=== PATIENT | female | born 1985 | race Caucasian/White ===

== ENCOUNTER 2019-07-10 15:09 | Emergency (ER) | payer SELFPAY ==
[~2019-07-10] VITALS: Ht 162.6 cm; Wt 54.4 kg
--- NOTE | 2019-07-10 15:19 | Emergency Room Report ---
History of Present Illness General Source: Patient (Miguel Bravo MD) Present Illness HPI Patient a 26-year-old female brought in by EMS after increased agitation. Reportedly had been banging her head against the ground. Patient had been given Versed intramuscularly prior to arrival. History is markedly limited by patient's mental status. (Miguel Bravo MD) Allergies: Coded Allergies: UNABLE TO ASSESS (Unverified , 07/10/19) Patient History Past Medical History: see triage record Reviewed Nursing Documentation: PMH: Agreed; PSxH: Agreed (Miguel Bravo MD) Review of Systems All Other Systems: limited - Limited by mental status and poor historian (Miguel Bravo MD) Physical Exam Sp02 EP Interpretation: reviewed, normal General Appearance: normal inspection, alert, GCS 15, Chronically Ill Head: atraumatic ENT: normal ENT inspection, hearing grossly normal, normal voice Neck: normal inspection, full range of motion, supple, no bony tend Respiratory: normal inspection, lungs clear, normal breath sounds, no respiratory distress, no retraction, no wheezing Cardiovascular #1: regular rate, rhythm, no edema Gastrointestinal: normal inspection, normal bowel sounds, non tender, soft, no guarding, no hernia Genitourinary: no CVA tenderness Musculoskeletal: normal inspection, back normal, normal range of motion Neurologic: alert, motor strength/tone normal, charging manipulator III-XII nml as tested, oriented x3, responsive, speech normal, normal inspection Psychiatric: normal inspection, judgement/insight normal, mood/affect normal Skin: abrasion - Abrasions to the neck (Miguel Bravo MD) Medical Decision Making Homeless Attestation I, The treating physician Dr. Thorne, have assessed and agree that patient is medically stable for discharge to an outpatient disposition. (Delano Thorne MD) Diagnostic Impression: Primary Impression: Altered mental status Qualified Codes: R40.4 - Transient alteration of awareness Additional Impressions: Abrasions of multiple sites Substance abuse ER Course Patient presented for increased agitation. Differential diagnosis include was not limited to substance abuse, psychosis, alcohol withdrawal, among others. Because of complexity of patient's case laboratory tests and imaging studies were ordered. Patient was noted to be somewhat agitated initially. She was given multiple medications to assist with sedation. Laboratory testing showed market elevation of the patient's alcohol level as well as multiple different substances. She was noted to have multiple abrasions to her extremities.Patient was noted to be markedly agitated. She was given medications for sedation due to agitation. Patient be endorsed to pending reevaluation when more sober. Labs Test 07/10/19 15:46 White Blood Count 11.7 K/UL (4.8-10.8) Red Blood Count 3.93 M/UL (4.20-5.40) Hemoglobin 11.8 G/DL (12.0-16.0) Hematocrit 34.7 % (37.0-47.0) Mean Corpuscular Volume 88 FL (80-99) Mean Corpuscular Hemoglobin 30.0 PG (27.0-31.0) Mean Corpuscular Hemoglobin Concent 33.9 G/DL (32.0-36.0) Red Cell Distribution Width 13.6 % (11.6-14.8) Platelet Count 326 K/UL (150-450) Mean Platelet Volume 4.4 FL (6.5-10.1) Neutrophils (%) (Auto) 73.9 % (45.0-75.0) Lymphocytes (%) (Auto) 17.5 % (20.0-45.0) Monocytes (%) (Auto) 7.6 % (1.0-10.0) Eosinophils (%) (Auto) 0.3 % (0.0-3.0) Basophils (%) (Auto) 0.7 % (0.0-2.0) Urine Color Yellow Urine Appearance Clear Urine pH 5 (4.5-8.0) Urine Specific Lipan 1.025 (1.005-1.035) Urine Protein 3+ (NEGATIVE) Urine Glucose (UA) Negative (NEGATIVE) Urine Ketones 1+ (NEGATIVE) Urine Blood 2+ (NEGATIVE) Urine Nitrite Negative (NEGATIVE) Urine Bilirubin Negative (NEGATIVE) Urine Urobilinogen Normal MG/DL (0.0-1.0) Urine Leukocyte Esterase Negative (NEGATIVE) Urine RBC 0-2 /HPF (0 - 2) Urine WBC 0-2 /HPF (0 - 2) Urine Squamous Epithelial Cells Moderate /LPF (NONE/OCC) Urine Bacteria Many /HPF (NONE) Urine HCG, Qualitative Negative (NEGATIVE) Sodium Level 144 MMOL/L (136-145) Potassium Level 3.7 MMOL/L (3.5-5.1) Chloride Level 107 MMOL/L (98-107) Carbon Dioxide Level 26 MMOL/L (21-32) Anion Gap 11 mmol/L (5-15) Blood Urea Nitrogen 16 mg/dL (7-18) Creatinine 0.6 MG/DL (0.55-1.30) Estimat Glomerular Filtration Rate > 60 mL/min (>60) Glucose Level 101 MG/DL (74-106) Calcium Level 7.8 MG/DL (8.5-10.1) Total Bilirubin 0.2 MG/DL (0.2-1.0) Aspartate Amino Transf (AST/SGOT) 23 U/L (15-37) Alanine Aminotransferase (ALT/SGPT) 34 U/L (12-78) Alkaline Phosphatase 111 U/L (46-116) Total Protein 6.7 G/DL (6.4-8.2) Albumin 3.0 G/DL (3.4-5.0) Globulin 3.7 g/dL Albumin/Globulin Ratio 0.8 (1.0-2.7) Salicylates Level 1.2 ug/mL (2.8-20) Urine Opiates Screen Negative (NEGATIVE) Acetaminophen Level < 2 MCG/ML (10-30) Urine Barbiturates Screen Negative (NEGATIVE) Phencyclidine (PCP) Screen Negative (NEGATIVE) Urine Amphetamines Screen Positive (NEGATIVE) Urine Benzodiazepines Screen Positive (NEGATIVE) Urine Cocaine Screen Positive (NEGATIVE) Urine Marijuana (THC) Screen Positive (NEGATIVE) Serum Alcohol 229 mg/dL (Miguel Bravo MD) ER Course Please see above note. 340 patient more alert. She gave us the name. When asked if she wants to harm herself at this time she is states no. She is still sleepy and slow to answer questions. Will reevaluate in the morning. 450 patient ambulated to bathroom. Patient states she is not taking psychiatric medication at this time. She does admit to doing drugs. She admits she has cut herself in the past. Patient continues to deny suicidal or homicidal ideation. Patient is stable for outpatient observation and treatment. Laboratory Tests Test 07/10/19 15:46 White Blood Count 11.7 K/UL (4.8-10.8) H Red Blood Count 3.93 M/UL (4.20-5.40) L Hemoglobin 11.8 G/DL (12.0-16.0) L Hematocrit 34.7 % (37.0-47.0) L Mean Corpuscular Volume 88 FL (80-99) Mean Corpuscular Hemoglobin 30.0 PG (27.0-31.0) Mean Corpuscular Hemoglobin Concent 33.9 G/DL (32.0-36.0) Red Cell Distribution Width 13.6 % (11.6-14.8) Platelet Count 326 K/UL (150-450) Mean Platelet Volume 4.4 FL (6.5-10.1) L Neutrophils (%) (Auto) 73.9 % (45.0-75.0) Lymphocytes (%) (Auto) 17.5 % (20.0-45.0) L Monocytes (%) (Auto) 7.6 % (1.0-10.0) Eosinophils (%) (Auto) 0.3 % (0.0-3.0) Basophils (%) (Auto) 0.7 % (0.0-2.0) Urine Color Yellow Urine Appearance Clear Urine pH 5 (4.5-8.0) Urine Specific Lipan 1.025 (1.005-1.035) Urine Protein 3+ (NEGATIVE) H Urine Glucose (UA) Negative (NEGATIVE) Urine Ketones 1+ (NEGATIVE) H Urine Blood 2+ (NEGATIVE) H Urine Nitrite Negative (NEGATIVE) Urine Bilirubin Negative (NEGATIVE) Urine Urobilinogen Normal MG/DL (0.0-1.0) Urine Leukocyte Esterase Negative (NEGATIVE) Urine RBC 0-2 /HPF (0 - 2) Urine WBC 0-2 /HPF (0 - 2) Urine Squamous Epithelial Cells Moderate /LPF (NONE/OCC) H Urine Bacteria Many /HPF (NONE) H Urine HCG, Qualitative Negative (NEGATIVE) Sodium Level 144 MMOL/L (136-145) Potassium Level 3.7 MMOL/L (3.5-5.1) Chloride Level 107 MMOL/L (98-107) Carbon Dioxide Level 26 MMOL/L (21-32) Anion Gap 11 mmol/L (5-15) Blood Urea Nitrogen 16 mg/dL (7-18) Creatinine 0.6 MG/DL (0.55-1.30) Estimate Glomerular Filtration Rate > 60 mL/min (>60) Glucose Level 101 MG/DL (74-106) Calcium Level 7.8 MG/DL (8.5-10.1) L Total Bilirubin 0.2 MG/DL (0.2-1.0) Aspartate Amino Transferase (AST) 23 U/L (15-37) Alanine Aminotransferase (ALT) 34 U/L (12-78) Alkaline Phosphatase 111 U/L (46-116) Total Protein 6.7 G/DL (6.4-8.2) Albumin 3.0 G/DL (3.4-5.0) L Globulin 3.7 g/dL Albumin/Globulin Ratio 0.8 (1.0-2.7) L Salicylates Level 1.2 ug/mL (2.8-20) L Urine Opiates Screen Negative (NEGATIVE) Acetaminophen Level < 2 MCG/ML (10-30) L Urine Barbiturates Screen Negative (NEGATIVE) Phencyclidine (PCP) Screen Negative (NEGATIVE) Urine Amphetamines Screen Positive (NEGATIVE) H Urine Benzodiazepines Screen Positive (NEGATIVE) H Urine Cocaine Screen Positive (NEGATIVE) H Urine Marijuana (THC) Screen Positive (NEGATIVE) H Serum Alcohol 229 mg/dL (Delano Thorne MD) Status: improved (Miguel Bravo MD) Last Vital Signs Date Time Temp Pulse Resp B/P (MAP) Pulse Ox O2 Delivery O2 Flow Rate FiO2 07/11/19 08:38 88 20 100 Room Air 07/11/19 08:38 98.1 118/65 Status: improved (Delano Thorne MD) Disposition: HOME, SELF-CARE Condition: Improved Scripts Bacitracin (Bacitracin) 28.4 Gm Oint...g. 1 APPLIC TOPIC BID, #20 GM Prov: Delano Thorne MD 07/11/19 Miguel Bravo MD Jul 10, 2019 15:19 Delano Thorne MD Jul 11, 2019 03:40
[2019-07-10 15:32] VITALS: BP 112/53
--- NOTE | 2019-07-10 15:32 | NUR ---
ED Nurse Note: PT BROUGHT IN BY RA Rodriguez FROM STREET DUE TO BEHAVIORAL COMPLAINT. PT WAS FOUND ON A SIDE STREET AND WAS BANGING HER HEAD ON THE SIDE WALK. NOTED OLD ABRASIONS ON BILATERAL ARMS. NO ACTIVE BLEEDING. EMS GAVE VERSED 5MG IM DUE TO BEING RESTLESS. PT IS AWAKE BUT COMPLETELY DISORIENTED AND UNABLE TO COMMUNICATE TO ED STAFF. NO RESPIRATORY DISTRESS.
[2019-07-10 16:23] LABS: BASOPHILS % (AUTO) 0.7 % (0.0-2.0); EOSINOPHILS % (AUTO) 0.3 % (0.0-3.0); HEMATOCRIT 34.7 % (37.0-47.0); HEMOGLOBIN 11.8 G/DL (12.0-16.0); LYMPHOCYTES % (AUTO) 17.5 % (20.0-45.0); MEAN CORPUSCULAR VOLUME 88 FL (80-99); MONOCYTES % (AUTO) 7.6 % (1.0-10.0); NEUTROPHILS % (AUTO) 73.9 % (45.0-75.0); PLATELET COUNT 326 K/UL (150-450); RED BLOOD COUNT 3.93 M/UL (4.20-5.40); RED CELL DISTRIBUTION WIDTH 13.6 % (11.6-14.8); WHITE BLOOD COUNT 11.7 K/UL (4.8-10.8)
[2019-07-10] MEDS ORDERED: DiphenhydrAMINE 50mg/ml Inj IM ONE (16:30)
[2019-07-10] MEDS ORDERED: Haloperidol 5mg/ml Inj IM ONE (16:30)
[2019-07-10] MEDS ORDERED: LORazepam Inj 2mg/ml 1ml IM ONE (16:30)
--- NOTE | 2019-07-10 16:30 | NUR ---
ED Nurse Note: PT VERY RESTLESS AND KEEPS CURSING ED STAFF. DR ESCALONA AWARE. WAITING FOR ORDERS.
[2019-07-10 16:33] LABS: APPEARANCE,URINE CLEAR; BILIRUBIN, URINE NEGATIVE (NEGATIVE); GLUCOSE, URINE (UA) NEGATIVE (NEGATIVE); KETONES,URINE 1+ (NEGATIVE); LEUKOCYTE ESTERASE ,URINE NEGATIVE (NEGATIVE); NITRITE,URINE NEGATIVE (NEGATIVE); PH,URINE 5 (4.5-8.0); PROTEIN,URINE 3+ (NEGATIVE); UROBILINOGEN,URINE NORMAL MG/DL (0.0-1.0)
[2019-07-10 16:34] LABS: COLOR,URINE YELLOW
[2019-07-10 16:41] LABS: ANION GAP 11 mmol/L (5-15); BLOOD UREA NITROGEN 16 mg/dL (7-18); CALCIUM 7.8 MG/DL (8.5-10.1); CARBON DIOXIDE 26 MMOL/L (21-32); CHLORIDE 107 MMOL/L (98-107); CREATININE 0.6 MG/DL (0.55-1.30); POTASSIUM 3.7 MMOL/L (3.5-5.1); SODIUM 144 MMOL/L (136-145)
[2019-07-10 16:45] LABS: ALANINE AMINOTRANSFERASE 34 U/L (12-78); ALBUMIN/GLOBULIN RATIO 0.8 (1.0-2.7); ALKALINE PHOSPHATASE 111 U/L (46-116); ASPARTATE AMINO TRANSFERASE 23 U/L (15-37); BILIRUBIN,TOTAL 0.2 MG/DL (0.2-1.0)
--- NOTE | 2019-07-10 17:08 | NUR ---
ED Nurse Note: Requested sitter to nursing pattern grader supervisor.
[2019-07-10 17:30] VITALS: BP 102/55
--- NOTE | 2019-07-10 19:23 | NUR ---
HAND-OFF: Report given to CARLOS ALBERTO TORRES.
[2019-07-10 21:30] VITALS: BP 112/68
--- NOTE | 2019-07-10 21:30 | NUR ---
ED Nurse Note: pT RESTING IN BED WITH EYES CLOSED, NON-LABORED BREATHING, NO SIGNS OF DISTRESS, PT CLEANED OFF AND OFFERED WATER AND FOOD WHEN AWAKE
--- NOTE | 2019-07-10 23:00 | NUR ---
ED Nurse Note: pT AWAKE AND SPEAKING WITH THIS RN, IN AND OUT OF SLEEP. WILL CONTINUE TO MONITOR, VSS
[2019-07-11 00:54] VITALS: BP 105/70
--- NOTE | 2019-07-11 03:19 | NUR ---
ED Nurse Note: pt awakens easily, offered several glasses of water, pt able to answer questions and updated name in chart. Will continue to monitor
[2019-07-11 03:54] VITALS: BP 121/68
[2019-07-11] MEDS ORDERED: BACITRACIN15 GM TOPIC (04:54)
--- NOTE | 2019-07-11 06:25 | NUR ---
ED Nurse Note: Pt ambulated to the restroom, A&Ox3, VSS, will continue to monitor.
[2019-07-11 06:26] VITALS: BP 118/65
--- NOTE | 2019-07-11 07:01 | NUR ---
HAND-OFF: Report given to MELISSA Wynne.
--- NOTE | 2019-07-11 07:19 | NUR ---
ED Nurse Note: Received pt on bed, sleeping. VSS, on RA; no signs of acute distress noted.
[2019-07-11 07:40] VITALS: BP 118/65
--- NOTE | 2019-07-11 07:51 | NUR ---
ED Nurse Note: Offered sandwich and juice as pt requested.
[2019-07-11 08:38] VITALS: BP 118/65
--- NOTE | 2019-07-11 08:38 | NUR ---
Homeless Discharge: Patient is being discharged from medical care. Awake, alert and oriented x3. After care instructions, including referral to community resources were given. Patient verbalized understanding of After care instructions; at this time patient does not request medications, equipment or placement. Patient signed patient consent in the medical record for patient destination upon discharge. All medical devices such as IV and ID band were removed. Patient ambulated out with all personal belongings with steady gait; meals provided.
== END 2019-07-11 08:38 | disposition home or self-care (01) ==
LOC: EDBD 15:09 → EMR 16:55
DX: R40.4 Transient alteration of awareness (principal); S10.91XA Abrasion of unspecified part of neck, initial encounter; T14.8XXA Other injury of unspecified body region, initial encounter; F15.10 Other stimulant abuse, uncomplicated; F12.10 Cannabis abuse, uncomplicated; X83.8XXA Intentional self-harm by other specified means, initial encounter; Y93.9 Activity, unspecified; Y92.9 Unspecified place or not applicable
CPT/HCPCS: 36415; 80053; 80307; 81003; 81025; 85025; 87086; 87181; 96372; 99283; G0480; J1200; J1630